=== PATIENT | male | born 1975 | race African-American/Black ===

== ENCOUNTER 2016-06-27 17:28 | Observation (INO) | payer SELFPAY ==
[~2016-06-27] VITALS: Ht 180.3 cm; Wt 90.7 kg
[2016-06-27 18:06] LABS: BASO # 0.1 x10^3/uL (0.0-0.2); BASO % 1 % (0-3); EOS % 3 % (0-3); HEMATOCRIT 37.4 % (39.0-53.0); HEMOGLOBIN 12.2 g/dL (13.0-17.5); LYMPH # 1.7 x10^3/uL (1.0-4.8); LYMPH % 21 % (24-48); MEAN CORPUSCULAR HEMOGLOBIN 29 pg (25-35); MEAN CORPUSCULAR HGB CONC 33 g/dL (31-37); MEAN CORPUSCULAR VOLUME 88 fL (79-100); MONO % 6 % (0-9); NEUT % 69 % (31-73); PLATELET COUNT 357 x10^3/uL (140-400); RED BLOOD COUNT 4.26 x10^6/uL (4.30-5.70); RED CELL DISTRIBUTION WIDTH 14.8 % (11.5-14.5); WHITE BLOOD COUNT 7.8 x10^3/uL (4.0-11.0)
[2016-06-27] MEDS ORDERED: DIPHTH,PERTUSS(ACELL),TET TOX 0.5 ML DISP.SYRIN. VAX IM ONE (18:15)
[2016-06-27 18:23] LABS: ANION GAP 8 (6-14); BLOOD UREA NITROGEN 13 mg/dL (8-26); CALCIUM 8.4 mg/dL (8.5-10.1); CARBON DIOXIDE 28 mmol/L (21-32); CHLORIDE 107 mmol/L (98-107); CREATININE 0.9 mg/dL (0.7-1.3); GLUCOSE 95 mg/dL (70-99); SODIUM 143 mmol/L (136-145)
[2016-06-27 18:30] LABS: ALBUMIN 3.7 g/dL (3.4-5.0); ALK PHOS 81 U/L (46-116); ALT (SGPT) 24 U/L (16-63); AST (SGOT) 23 U/L (15-37); DIRECT BILIRUBIN < 0.1 mg/dL (0.0-0.2); TOTAL BILIRUBIN 0.3 mg/dL (0.2-1.0); TOTAL PROTEIN 7.4 g/dL (6.4-8.2)
[2016-06-27 18:32] LABS: ETHANOL < 10 mg/dL (0-10)
[2016-06-27] MEDS ORDERED: LIDOCAINE 1% / SOD BICARB 8.4% 20 ML VIAL. IJ ONE ×2 (18:45→19:30)
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
[2016-06-27] MEDS ORDERED: HYDR-2666 PO (19:18)
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
[2016-06-27] MEDS ORDERED: ONDANSETRON PF 4 MG/2 ML VIAL. IV PRN (21:30)
[2016-06-27] MEDS ORDERED: MORPHINE SULFATE 2 MG/ML DISP.SYRIN. IV PRN (21:30)
[2016-06-27 21:47] LABS: BILIRUBIN,URINE SMALL (NEG); GLUCOSE,URINE NEGATIVE (NEG); NITRITE,URINE NEGATIVE (NEG); PROTEIN,URINE NEGATIVE (NEG-TRACE)
[2016-06-27 21:54] LABS: BARBITURATES NEG (NEG); BENZODIAZEPINES NEG (NEG); CANNABINOIDS POS (NEG); COCAINE NEG (NEG); ETHANOL, URINE NEG (NEG); METHADONE NEG (NEG); OPIATES NEG (NEG); PHENCYCLIDINE POS (NEG)
[2016-06-27 21:57] LABS: BACTERIA,URINE 0 /HPF (0-FEW); RBC,URINE 0 /HPF (0-2); SQUAMOUS EPITHELIAL CELL,UR OCC /LPF; WBC,URINE OCC /HPF (0-4)
[2016-06-28 00:50] VITALS: BP 127/81
[2016-06-28 03:00] VITALS: BP 111/61
[2016-06-28 04:18] LABS: BASO # 0.1 x10^3/uL (0.0-0.2); BASO % 1 % (0-3); EOS % 3 % (0-3); HEMATOCRIT 33.4 % (39.0-53.0); HEMOGLOBIN 11.1 g/dL (13.0-17.5); LYMPH # 1.9 x10^3/uL (1.0-4.8); LYMPH % 25 % (24-48); MEAN CORPUSCULAR HEMOGLOBIN 29 pg (25-35); MEAN CORPUSCULAR HGB CONC 33 g/dL (31-37); MEAN CORPUSCULAR VOLUME 87 fL (79-100); MONO % 7 % (0-9); NEUT % 64 % (31-73); PLATELET COUNT 312 x10^3/uL (140-400); RED BLOOD COUNT 3.85 x10^6/uL (4.30-5.70); RED CELL DISTRIBUTION WIDTH 14.9 % (11.5-14.5); WHITE BLOOD COUNT 7.3 x10^3/uL (4.0-11.0)
[2016-06-28 04:26] LABS: CALCIUM 8.2 mg/dL (8.5-10.1); CREATININE 0.9 mg/dL (0.7-1.3); POTASSIUM 3.4 mmol/L (3.5-5.1)
[2016-06-28 07:00] VITALS: BP 103/59
[2016-06-28] MEDS ORDERED: OXYCODONE/APAP 5/325 TABLET. PO PRN (08:45)
[2016-06-28] MEDS ORDERED: POTASSIUM CHLORIDE 20 MEQ TABLET.ER. PO ONE (08:45)
[2016-06-28] MEDS ORDERED: HYDR-2666 PO (08:46)
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
[2016-06-28 11:00] VITALS: BP 111/71
== END 2016-06-28 13:29 | disposition home or self-care (01) ==
LOC: ER 17:28 → 5 NORTH 21:26
PROVIDERS: ADMIT Internal Medicine; ATTEND Internal Medicine
DX: S01.112A Laceration without foreign body of left eyelid and periocular area, initial encounter (principal); S01.01XA Laceration without foreign body of scalp, initial encounter; S06.0X0A Concussion without loss of consciousness, initial encounter; Y09 Assault by unspecified means; Y93.89 Activity, other specified; Y92.89 Other specified places as the place of occurrence of the external cause; Y99.8 Other external cause status; Z59.0 Homelessness
CPT/HCPCS: 12002; 12011; 36415; 70450; 70486; 72125; 80048; 80076; 81001; 83690; 83930; 85027; 90471; 90715; 99285; G0378; G0379; G0480; G0481; G6038; 12013; 96372; 80196

== ENCOUNTER 2016-07-09 14:51 | Emergency (ER) | payer SELFPAY ==
[~2016-07-09 14:51] MED LIST: HYDR-2666 PO
== END 2016-07-09 16:15 | disposition left against medical advice (07) ==
LOC: ER 14:51
DX: R51 Headache (principal)

== ENCOUNTER 2018-11-23 23:00 | Emergency (ER) | payer SELFPAY ==
[~2018-11-23] VITALS: Ht 182.9 cm; Wt 72.6 kg
[~2018-11-23 23:00] MED LIST changes: -HYDR-2666 PO; +HYDR-2761 PO
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
[2018-11-23 23:27] LABS: BASO # 0.1 x10^3/uL (0.0-0.2); BASO % 1 % (0-3); EOS # 0.2 x10^3/uL (0.0-0.7); EOS % 2 % (0-3); HEMATOCRIT 34.2 % (39.0-53.0); HEMOGLOBIN 11.5 g/dL (13.0-17.5); LYMPH # 1.5 x10^3/uL (1.0-4.8); LYMPH % 15 % (24-48); MEAN CORPUSCULAR HEMOGLOBIN 29 pg (25-35); MEAN CORPUSCULAR HGB CONC 34 g/dL (31-37); MEAN CORPUSCULAR VOLUME 88 fL (79-100); MONO # 0.4 x10^3/uL (0.0-1.1); MONO % 4 % (0-9); NEUT # 7.8 x10^3uL (1.8-7.7); NEUT % 79 % (31-73); PLATELET COUNT 303 x10^3/uL (140-400); RED BLOOD COUNT 3.91 x10^6/uL (4.30-5.70); RED CELL DISTRIBUTION WIDTH 14.2 % (11.5-14.5); WHITE BLOOD COUNT 9.9 x10^3/uL (4.0-11.0)
[2018-11-23] MEDS ORDERED: LIDOCAINE 2%/EPI 1:100,000 20 ML VIAL. IJ ONE (23:30)
[2018-11-23] MEDS ORDERED: NEOMY/BACITR/POLYMYXIN OINT PACKET. TP ONE (23:30)
[2018-11-23] MEDS ORDERED: IV NORMAL SALINE 1000ML BAG 1,000 ML IV ONE ×2 (23:30→23:45)
[2018-11-23 23:32] LABS: BILIRUBIN,URINE SMALL (NEG); CLARITY,URINE CLEAR; COLOR,URINE YELLOW; NITRITE,URINE NEGATIVE (NEG); PROTEIN,URINE 30 mg/dL (NEG-TRACE)
[2018-11-23 23:37] LABS: CALCIUM 8.8 mg/dL (8.5-10.1); CREATININE 1.4 mg/dL (0.7-1.3); GFR 66.3; POTASSIUM 3.8 mmol/L (3.5-5.1)
[2018-11-23 23:39] LABS: BARBITURATES NEG (NEG); BENZODIAZEPINES NEG (NEG); CANNABINOIDS POS (NEG); COCAINE NEG (NEG); METHADONE NEG (NEG); OPIATES NEG (NEG); PHENCYCLIDINE POS (NEG)
[2018-11-23 23:41] LABS: AMPHETAMINE/METHAMPHETAMINE NEG (NEG); BACTERIA,URINE FEW /HPF (0-FEW); SQUAMOUS EPITHELIAL CELL,UR FEW /LPF
[2018-11-23 23:43] LABS: ALBUMIN 3.3 g/dL (3.4-5.0); MAGNESIUM 2.4 mg/dL (1.8-2.4); TOTAL BILIRUBIN 0.2 mg/dL (0.2-1.0); TOTAL PROTEIN 6.6 g/dL (6.4-8.2)
[2018-11-24 00:39] VITALS: BP 129/75
--- NOTE | 2018-11-24 00:45 | RAD ---
INDICATION: Trauma with head, face and neck pain COMPARISON: June 2016 TECHNIQUE: Axial CT images obtained through the head, face and cervical spine. One or more of the following individualized dose reduction techniques were utilized for this examination: 1. Automated exposure control; 2. Adjustment of the mA and/or kV according to patient size; 3. Use of iterative reconstruction technique. FINDINGS: Head: Suspected small right posterior scalp cephalohematoma. No midline shift. No hydrocephalus. Suprasellar cistern is not effaced. No definite acute intracranial hemorrhage. Cervical spine: Multilevel degenerative changes of the cervical spine with osteophyte formation at the vertebral body endplates as well as uncovertebral and facet hypertrophy. Central canal neural foraminal stenosis is seen at multiple levels and more than typically seen for the patient's age. No definite acute fracture or dislocation. Facial: There is some evidence of odontogenic disease. Deviation of the nasal septum to the left. Maxillary sinuses are well aerated. Frontal sinus and ethmoid air cells well aerated. Frontal and left preorbital facial hematoma extending into the left side of the face. IMPRESSION: 1. No acute intracranial hemorrhage. 2. Degenerative changes of the cervical spine with multilevel central canal and neural foraminal stenosis more than typically seen for the patient's age. 3. Facial hematoma on the left. 4. There is some angulation of the nasal bone and nasal septal deviation to left. This may be chronic in nature given that it had a similar appearance when compared to prior however would correlate with symptoms in the region to ensure that there is not an acute on chronic fracture. Electronically signed by: Joce Gaspar MD (11/24/2018 12:42 AM) [facility]
--- NOTE | 2018-11-24 08:26 | RAD ---
Exam performed: 2 views right tibia-fibula and 1 view chest. HISTORY: Altered mental status. DATE OF SERVICE: 11/23/2018. COMPARISON: None available FINDINGS: Single AP view of the chest is obtained. Heart size and mediastinal silhouette appears normal. Pulmonary vascularity is unremarkable. Lungs are well-expanded and clear. No focal infiltrates, effusion or pneumothorax seen. Bones are normal AP and lateral view of the right tibia-fibula is obtained. Postoperative changes seen about the tibia with a sideplate and several screws. No fracture line is evident. The knee joint as well as the ankle joint appears preserved. No soft tissue swelling or foreign body seen. IMPRESSION: No acute cardiopulmonary process seen. No acute abnormality seen in the right tibia-fibula. Postoperative changes are seen. Electronically signed by: Blanca Hubbard MD (11/24/2018 8:23 AM) [facility]
== END 2018-11-24 00:53 | disposition home or self-care (01) ==
LOC: ER 23:00
DX: F12.229 Cannabis dependence with intoxication, unspecified (principal); F16.20 Hallucinogen dependence, uncomplicated; S81.811A Laceration without foreign body, right lower leg, initial encounter; S05.32XA Ocular laceration without prolapse or loss of intraocular tissue, left eye, initial encounter; F20.9 Schizophrenia, unspecified; F10.20 Alcohol dependence, uncomplicated; Y90.0 Blood alcohol level of less than 20 mg/100 ml; Y04.8XXA Assault by other bodily force, initial encounter; Y93.89 Activity, other specified; Y92.89 Other specified places as the place of occurrence of the external cause; Y99.8 Other external cause status
CPT/HCPCS: 12002; 12011; 36415; 70450; 70486; 71045; 72125; 73590; 80053; 80307; 81001; 83735; 85025; 99285; G0480; J3490; J7030